=== PATIENT | male | born 1995 | race Caucasian/White ===

== ENCOUNTER → 2018-07-10 | Day surgery (SDC) | payer OTHER ==
[~2018-07-10] MED LIST: LIDOCAINE 2% JELLY 5 ML TUBE ONE
== END ==
LOC: END 08:11
PROVIDERS: ATTEND Internal Medicine Gastroenterology
DX: K21.9 Gastro-esophageal reflux disease without esophagitis (principal); R13.19 Other dysphagia
CPT/HCPCS: 91010